=== PATIENT | female | born 1965 | race Caucasian/White ===

== ENCOUNTER → 2018-04-06 09:38 | Outpatient (CLI) | payer MEDICARE | END | disposition home or self-care (01) | LOC: D.RAD 09:38 | DX: R13.10 Dysphagia, unspecified (principal); K21.9 Gastro-esophageal reflux disease without esophagitis; R10.13 Epigastric pain ==

== ENCOUNTER → 2018-04-18 10:32 | Outpatient (CLI) | payer MEDICARE ==
[~2018-04-18 10:32] MED LIST: ALBUTEROL SULF8.5 GM INH; DIFLUCAN100 MG PO; LYRICA75 MG PO; MUPIROCIN22 GM; NEURONTIN 300300 MG; OMEPRAZOLE40 MG PO; PROZAC20 MG PO; SEROQUEL100 MG PO
[2018-05-07 08:12] VITALS: BMI 34.0
== END | disposition home or self-care (01) ==
LOC: D.CT 10:32
DX: R93.3 Abnormal findings on diagnostic imaging of other parts of digestive tract (principal)

== ENCOUNTER 2018-05-07 06:03 | Day surgery (SDC) | payer MEDICARE ==
[~2018-05-07] VITALS: Ht 149.9 cm; Wt 76.4 kg
[2018-05-07 07:02] LABS: HCG SERUM NEGATIVE (NEGATIVE)
[2018-05-07] MEDS ORDERED: ALBUTEROL SULF8.5 GM INH (07:55)
[2018-05-07] MEDS ORDERED: DIFLUCAN100 MG PO (07:55)
[2018-05-07] MEDS ORDERED: LYRICA75 MG PO (07:56)
[2018-05-07] MEDS ORDERED: NEURONTIN 300300 MG (07:57)
[2018-05-07] MEDS ORDERED: MUPIROCIN22 GM (07:57)
[2018-05-07] MEDS ORDERED: OMEPRAZOLE40 MG PO (07:58)
[2018-05-07] MEDS ORDERED: PROZAC20 MG PO (07:58)
[2018-05-07] MEDS ORDERED: SEROQUEL100 MG PO (07:58)
[2018-05-07 08:03] LABS: HEMATOCRIT 36.8 % (36.0-48.0); HEMOGLOBIN 11.1 g/dL (12-16); MCH 24.9 pg (26.0-34.0); MCHC 30.2 g/dL (31.0-37.0); MCV 82.5 fL (80.0-100.0); RBC 4.46 10x6/uL (4.00-5.40); RDW 18.3 % (11.5-14.5); WBC 11.4 10x3/uL (4.8-10.8)
[2018-05-07 08:12] VITALS: BP 148/80; Ht 149.9 cm; Wt 76.4 kg
[2018-05-07 08:28] LABS: HCG URINE NEGATIVE (NEGATIVE)
--- NOTE | 2018-05-07 10:26 | NUR ---
0905-RECD FROM GI LAB 909-DR LOWE IN TO REPORT FINDINGS 0915-FULL LIQUIDS SERVED 0935-NO NAUSEA, IV D/C 0940-VOIDS AND DRESSED 1000-DISCHARGE INSTRUCTIONS REVIEWED WITH PATIENT AND SPOUSE 1005-D/C HOME VIA WHEELCHAIR WITH SPOUSE
--- NOTE | 2018-05-09 09:41 | OP ---
PATIENT NAME: SEGUN DIAZ MEDICAL RECORD: [id number] :63 LOCATION:D.OPS ADMISSION DATE: SURGEON: MOI LOWE DO DATE OF OPERATION: 05/07/2018 PROCEDURE: EGD with biopsies. INDICATIONS FOR PROCEDURE: Dysphagia, heartburn, nausea, epigastric pain. SCOPE: Olympus video gastroscope. MEDICATIONS: Propofol 120 mg IV per anesthesia. ESTIMATED BLOOD LOSS: Minimal. COMPLICATIONS: None. FINDINGS AND DESCRIPTION OF PROCEDURE: Informed consent was given. The patient was made comfortable with the above medication. After reaching an adequate level of sedation by slow IV push, the patient was placed on her left side. The endoscope was advanced under direct visualization through the mouth to the second portion of the duodenum. The upper, middle, and lower thirds of the esophagus appeared normal. Random biopsies were taken with cold forceps of the midesophagus to submit for histopathology and to rule out the presence of eosinophils. At the GE junction, there were minor changes consistent with LA class A reflux-induced esophagitis. The endoscope was advanced beyond the GE junction into the stomach and retroflexed to view the cardia and fundus, which appeared normal. There was diffuse, mild, erythema and congestion throughout the entire stomach consistent with gastritis. Random cold forceps biopsies were taken from the incisura, body of the stomach, and antrum to submit for histopathology and to rule out the presence of H. pylori. The endoscope was advanced beyond the pylorus into the duodenum, which appeared normal down to the second portion. The endoscope was withdrawn from the patient. The patient tolerated the procedure well and there were no complications. IMPRESSION: 1. LA class A reflux-induced esophagitis. 2. Gastritis. PLAN AND RECOMMENDATIONS: 1. Discharge home when recovery parameters are met. 2. Follow up biopsy specimen results. 3. GERD diet and reflux precautions. 4. Continue current medications. 5. We will set the patient up for esophageal manometry and pH study utilizing the laryngopharyngeal reflux probes. 6. Pending biopsy results, we will consider gastric emptying scan based on symptoms. TRANSINT:[id number] Voice Confirmation ID: [id number] DOCUMENT ID: [id number] OPERATIVE REPORT [id number] SEGUN DIAZ MOI LOWE DO at 0941 CC: [id number] DICTATION DATE: 05/07/18 0850 DIAL MAKER: 05/07/18 0937 [facility] 05/07/18 [facility] [address] [place] [address]
== END 2018-05-07 10:05 | disposition home or self-care (01) ==
LOC: D.OPS 06:03
PROVIDERS: Anesthesiology; Internal Medicine Gastroenterology
DX: K21.0 Gastro-esophageal reflux disease with esophagitis (principal); K29.70 Gastritis, unspecified, without bleeding; Z01.812 Encounter for preprocedural laboratory examination

== ENCOUNTER → 2018-05-08 12:55 | Outpatient (CLI) | payer MEDICARE ==
[2018-05-07 08:12] VITALS: BMI 34.0
== END | disposition home or self-care (01) ==
LOC: D.NM 12:55
DX: R11.0 Nausea (principal); R10.9 Unspecified abdominal pain; R12 Heartburn

== ENCOUNTER → 2018-05-22 06:49 | Outpatient (CLI) | payer MEDICARE ==
[2018-05-07 08:12] VITALS: BMI 34.0
--- NOTE | 2018-05-22 09:11 | NUR ---
0755-ATTEMPT TO ADVANCE MANOMETRY CATHETER TO PHARYNGEAL AREA PAST NARES. PT. REFUSED AND ASKED FOR TEST TO RUMA DISCONTINUED.
== END | disposition home or self-care (01) ==
LOC: D.OPS 05-15 08:30
PROVIDERS: ATTEND Internal Medicine Gastroenterology
DX: K21.9 Gastro-esophageal reflux disease without esophagitis (principal); Z01.812 Encounter for preprocedural laboratory examination

== ENCOUNTER → 2018-06-19 10:25 | Day surgery (SDC) | payer MEDICARE ==
[2018-05-07 08:12] VITALS: BMI 34.0
--- NOTE | 2018-06-19 14:56 | NUR ---
1110. PT UNABLE TO TOLERATE PROCEDURE. TUBE REMOVED AND PT DC'D HOME. ADVISED TO CALL DR LOWE WITH ANY PROBLEMS.
== END | disposition home or self-care (01) ==
LOC: D.OPS 10:25
PROVIDERS: ATTEND Internal Medicine Gastroenterology
DX: K21.9 Gastro-esophageal reflux disease without esophagitis (principal); Z01.812 Encounter for preprocedural laboratory examination

== ENCOUNTER 2018-07-30 10:42 | Day surgery (SDC) | payer MEDICARE ==
[~2018-07-30] VITALS: Ht 149.9 cm; Wt 75.9 kg
[2018-07-30 11:26] VITALS: BP 108/45; Ht 149.9 cm; Wt 75.9 kg
[2018-07-30 11:27] LABS: ANION GAP 9.5 mmol/L (8-16); CALCIUM 8.4 mg/dL (8.5-10.1); CARBON DIOXIDE 31.4 mmol/L (21.0-32.0); CREATININE - SERUM 0.9 mg/dL (0.6-1.3); POTASSIUM - SERUM 3.9 mmol/L (3.5-5.1)
--- NOTE | 2018-07-30 13:35 | NUR ---
PT DC INSTRUCTIONS REVIEWED AT THIS TIME, PT VERBALIZES UNDERSTANDING. PT IV REMOVED AT THIS TIME, INACT, NO REDNESS OR SWELLING NOTED AT SITE.
--- NOTE | 2018-07-30 13:45 | NUR ---
PT LEAVING OPS UNIT AT THIS TIME VIA WC.
--- NOTE | 2018-07-30 16:06 | OP ---
PATIENT NAME: SEGUN DIAZ MEDICAL RECORD: [id number] :63 LOCATION:D.OPS ADMISSION DATE: SURGEON: MOI LOWE DO DATE OF OPERATION: 07/30/2018 PROCEDURE: Colonoscopy with biopsies. INDICATIONS FOR PROCEDURE: Irregular bowel habits, chronic constipation, nausea and vomiting. SCOPE: IntelliDOT video pediatric colonoscope. MEDICATIONS: Propofol 350 mg IV per anesthesia. WITHDRAWAL TIME: 15 minutes. ESTIMATED BLOOD LOSS: Minimal. COMPLICATIONS: None. FINDINGS AND DESCRIPTION OF PROCEDURE: Informed consent was given. The patient was made comfortable with the above medication. After reaching an adequate level of sedation by slow IV push, the patient was placed on her left side. A digital rectal examination was performed and was normal. The endoscope was then advanced under direct visualization through the rectum to the cecum, confirmed by the presence of the appendiceal orifice and ileocecal valve. The endoscope was slowly withdrawn and the mucosa was carefully examined. The prep quality was fair. There were no polyps visualized on today's examination. There was evidence of mild diverticulosis involving the sigmoid colon. Retroflexion was performed in the rectum with visualization of a normal rectal wall. The endoscope was withdrawn from the patient. The patient tolerated the procedure well and there were no complications. IMPRESSION: 1. Mild diverticulosis of the sigmoid colon. 2. Random biopsies taken to submit for histopathology and to rule out the presence of microscopic colitis. PLAN AND RECOMMENDATIONS: 1. Discharge home when recovery parameters are met. 2. Follow up biopsy specimen results. 3. Continue current diet. 4. Continue current medications. 5. Recall colonoscopy in 10 years for colon cancer screening. TRANSINT:[id number] Voice Confirmation ID: [id number] DOCUMENT ID: [id number] OPERATIVE REPORT [id number] SEGUN DIAZ MOI LOWE DO at 1606 CC: [id number] DICTATION DATE: 07/30/18 1242 REPAIR TECH: 07/30/18 1250 [facility] 07/30/18 [place] [id number]
== END 2018-07-30 13:50 | disposition home or self-care (01) ==
LOC: D.OPS 10:42
PROVIDERS: Anesthesiology; ATTEND Internal Medicine Gastroenterology
DX: K57.30 Diverticulosis of large intestine without perforation or abscess without bleeding (principal); K59.09 Other constipation; R11.2 Nausea with vomiting, unspecified; Z01.812 Encounter for preprocedural laboratory examination